=== PATIENT | female | born 1960 | race American Indian/Alaskan Native ===

== ENCOUNTER 2016-10-24 09:05 | Emergency (ER) | payer MEDICARE ==
[2016-10-24] MEDS ORDERED: ZOFRAN IV ONE (09:37)
--- NOTE | 2016-10-24 09:40 | Emergency Department Report ---
Chief Complaint: Nausea/Vomiting/Diarrhea Stated Complaint: REACTION TO MEDS Time Seen by Provider: 10/24/16 09:35 - HPI History of Present Illness: pt c/o abd pain, vomiting, and chest pain since last night. pt thinks this is a reaction to medication - ROS Review of Systems: + abd pain + cp + vomiting - Exam Physical Exam: obese female actively vomiting in triage MSE screening note: Focused history and physical exam performed. Due to findings the following was ordered: labs, ekg, meds ED Disposition for MSE Condition: Stable
[2016-10-24] MEDS ORDERED: NACL 0.9% 1000 ML 2,000 ML IV ONE (10:26)
--- NOTE | 2016-10-24 10:38 | XRay Report ---
PORTABLE CHEST INDICATION: Chest pain. COMPARISON: None similar. FINDINGS: Portable, frontal chest radiograph demonstrates normal cardiomediastinal silhouette. Mild aortic knob calcifications. Slightly crowded lung markings centrally, though otherwise clear, given the inspiration. EKG leads. Intact bones. CONCLUSION: No acute disease. Thank you for the opportunity to participate in this patient's care.
[2016-10-24 10:46] LABS: Basophils % (Auto) 0.4 % (0.0-1.8); Eosinophils % (Auto) 0.1 % (0.0-4.3); Hematocrit 44.9 % (30.3-42.9); Hemoglobin 14.9 gm/dl (10.1-14.3); Mean Corpuscular HGB Conc 33 % (30-34); Mean Corpuscular Hemoglobin 29 pg (28-32); Mean Corpuscular Volume 88 fl (79-97); Platelet Count 147 K/mm3 (140-440); Red Blood Count 5.13 M/mm3 (3.65-5.03); Red Cell Distribution Width 14.3 % (13.2-15.2); White Blood Count 7.1 K/mm3 (4.5-11.0)
[2016-10-24] MEDS ORDERED: HALDOL IM ONE (10:48)
[2016-10-24 11:11] LABS: Alanine Aminotransferase 15 units/L (7-56); Albumin/Globulin Ratio 1.1 %; Alkaline Phosphatase 65 units/L (35-129); Anion Gap 22 mmol/L; Blood Urea Nitrogen 10 mg/dL (7-17); Calcium 9.9 mg/dL (8.4-10.2); Carbon Dioxide 20 mmol/L (22-30); Chloride 100.5 mmol/L (98-107); Glucose 143 mg/dL (65-100); Lipase 24 units/L (13-60); Potassium 3.5 mmol/L (3.6-5.0); Sodium 139 mmol/L (137-145); Total Protein 7.7 g/dL (6.3-8.2)
[2016-10-24 12:10] LABS: Bacteria,Urine 1+ /HPF (Negative); Bilirubin,Urine NEG (Negative); Blood,Urine NEG (Negative); Ketones,Urine 20 mg/dL (Negative); Leukocyte Esterase,Urine SM (Negative); Mucus,Urine 2+ /HPF; Nitrite,Urine NEG (Negative); Urobilinogen,Urine < 2.0 mg/dL (<2.0)
--- NOTE | 2016-10-24 12:17 | Cat Scan Report ---
CT OF THE ABDOMEN AND PELVIS WITHOUT CONTRAST HISTORY: Abdominal pain. TECHNIQUE: Helical CT without contrast. Sagittal and coronal reformatted images. FINDINGS: Within the limits of a noncontrast exam, the abdominal and pelvic viscera are within normal limits. The liver is normal size and contour. 2 cm hemangioma versus cyst in the left hepatic lobe is noted. No suspicious liver mass. The biliary system, pancreas, spleen, kidneys, adrenal glands and bladder are unremarkable. The bowel loops are normal caliber and wall thickness. Normal appendix. The aorta is normal caliber. No ascites, bulky adenopathy or inflammatory changes. The uterus and adnexa are unremarkable. Left hip replacement changes generate artifact in the pelvis. The lung bases are clear. Normal heart size. No suspicious bony lesion. IMPRESSION: No acute abdominal process is appreciated. No clear explanation for abdominal pain. Liver hemangioma versus cyst. I favor hemangioma.
[2016-10-24] MEDS: CATAPRES PO ONE ×2 (13:17→14:04)
--- NOTE | 2016-10-24 15:10 | Emergency Department Report ---
ED General Adult HPI - General Chief complaint: Dyspnea/Respdistress Stated complaint: REACTION TO MEDS Time Seen by Provider: 10/24/16 09:35 Source: patient, family Mode of arrival: Ambulatory Limitations: No Limitations - History of Present Illness Initial comments: Patient reports that she is on disability from chronic knee, back, and left shoulder pain. Reports that she took a percocet and afterwards felt abdominal pain and chest pain last night. Continuous until this morning. Reports that she thinks she had an allergic reaction to the percocet that resulted in pain. Patient requesting pain medication for her abdominal and chest pain. Denies SI/ HI -: Gradual, hour(s) Radiation: non-radiation Severity scale (0 -10): 2 Quality: aching Consistency: constant Improves with: none Worsens with: medication Associated Symptoms: chest pain. denies: confusion, cough, diaphoresis, fever/ chills, headaches, loss of appetite, malaise, nausea/vomiting, rash, seizure, shortness of breath, syncope, weakness - Related Data Home Medications Medication Instructions Recorded Confirmed Last Taken AtorvaSTATin [Lipitor] 20 mg PO QHS 10/24/16 10/24/16 10/23/16 Citalopram [celeXA] 20 mg PO QDAY 10/24/16 10/24/16 10/23/16 Hydrochlorothiazide [HCTZ] 25 mg PO QDAY 10/24/16 10/24/16 10/23/16 Losartan [Cozaar] 100 mg PO QDAY 10/24/16 10/24/16 10/23/16 amLODIPine [Norvasc] 10 mg PO DAILY 10/24/16 10/24/16 10/23/16 Allergies Allergy/AdvReac Type Severity Reaction Status Date / Time No Known Allergies Allergy Unverified 10/24/16 09:38 ED Review of Systems ROS: Stated complaint: REACTION TO MEDS Other details as noted in HPI Other: GENERAL: No weight change, fatigue, weakness, fever, chills, or night sweats SKIN: No changes in skin or hair, no itching, no rashes, no jaundice HEAD: No trauma, headache, or visual changes EYES: No blurriness, tearing, itching, acute visual loss, conjunctival discoloration, or scleral icterus EARS: No hearing loss, tinnitus, vertigo, or earache NOSE: No rhinorrhea, stuffiness, sneezing, itching, or epistaxis MOUTH: No bleeding gums, hoarseness, sore throat, or swelling CARDIAC: chest pain RESPIRATORY: No shortness of breath, wheeze, cough, sputum production, hemoptysis, pneumonia, asthma, bronchitis, or emphysema GI: abdominal pain URINARY: No frequency, urgency, polyuria, dysuria, hematuria, or incontinence MUSCULOSKELETAL: No muscle weakness, joint stiffness, decrease in range of motion, redness, swelling, tenderness NEUROLOGIC: No loss of sensation, numbness, tingling, tremors, weakness, paralysis, seizures HEMATOLOGIC: No anemia, easy bruising, bleeding, petechiae, or purpura ENDOCRINE: No hot or cold intolerance, sweating, polyuria, polydipsia or, polyphagia no thyroid problems PSYCHIATRIC: No change in mood, no anxiety, no depression ED Past Medical Hx - Past Medical History Previous Medical History?: Yes Hx Hypertension: Yes - Surgical History Past Surgical History?: Yes Additional Surgical History: Left hip replacement, right foot surgery with instrumentation - Social History Smoking Status: Former Smoker Substance Use Type: Marijuana, Prescribed - Medications Home Medications: Home Medications Medication Instructions Recorded Confirmed Last Taken Type AtorvaSTATin [Lipitor] 20 mg PO QHS 10/24/16 10/24/16 10/23/16 History Citalopram [celeXA] 20 mg PO QDAY 10/24/16 10/24/16 10/23/16 History Hydrochlorothiazide [HCTZ] 25 mg PO QDAY 10/24/16 10/24/16 10/23/16 History Losartan [Cozaar] 100 mg PO QDAY 10/24/16 10/24/16 10/23/16 History amLODIPine [Norvasc] 10 mg PO DAILY 10/24/16 10/24/16 10/23/16 History ED Physical Exam - General Limitations: No Limitations - Other Other exam information: GENERAL: Patient in no acute distress HEAD: Normocephalic, atraumatic EYES: PERRLA, EOM intact, no scleral icterus, no conjunctival hemorrhage, visual arroyo and acuity wnl, NOSE: No tenderness, discharge, sinus tenderness MOUTH: No erythema, bleeding, exudate HEART: Regular rate and rhythm, no murmur, S1-S2 are auscultated, pulses are symmetric LUNGS: No wheezing, rales, rhonchi, bilateral breath sounds ABDOMEN: Normal bowel sounds, no tenderness, no rebound, no guarding, no masses , no CVA tenderness MUSCULOSKELETAL: Normal joint range of motion, no redness, no swelling, no tenderness NEUROLOGIC: GCS 15, Alert and Oriented x3, Cranial nerves intact, normal sensation, normal strength, no cerebellar deficit PSYCHIATRIC: No homicidal or suicidal ideation, no anxiety, no depression, no hallucinations SKIN: Skin is warm and dry, no wounds, no rashes ED Course Vital Signs 10/24/16 10/24/16 10/24/16 09:32 09:36 10:00 Temperature 98.3 F Pulse Rate 83 65 Respiratory 22 17 Rate Blood Pressure 154/85 121/67 Blood Pressure [Left] O2 Sat by Pulse 100 100 100 Oximetry 10/24/16 10/24/16 10/24/16 10:30 11:00 11:30 Temperature Pulse Rate 73 91 H 79 Respiratory 20 28 H 14 Rate Blood Pressure 166/92 180/117 180/117 Blood Pressure [Left] O2 Sat by Pulse 100 100 100 Oximetry 10/24/16 10/24/16 10/24/16 12:16 12:25 12:30 Temperature Pulse Rate 75 Respiratory 18 Rate Blood Pressure 180/117 123/63 Blood Pressure 140/74 [Left] O2 Sat by Pulse 100 100 100 Oximetry 10/24/16 10/24/16 10/24/16 13:00 13:30 14:01 Temperature Pulse Rate Respiratory Rate Blood Pressure 124/57 140/74 147/74 Blood Pressure [Left] O2 Sat by Pulse 100 96 100 Oximetry 10/24/16 10/24/16 10/24/16 14:04 14:31 15:00 Temperature Pulse Rate 78 Respiratory Rate Blood Pressure 174/75 101/53 98/47 Blood Pressure [Left] O2 Sat by Pulse 95 97 Oximetry ED Medical Decision Making - Lab Data Result diagrams: 10/24/16 10:25 10/24/16 10:33 - EKG Data When compared to previous EKG there are: no significant change - Radiology Data Radiology results: report reviewed - Medical Decision Making Patient comfortable. Updated with results. Plan discharge with outpatient follow-up. Patient agrees with plan and will return if symptoms worsen. Critical care attestation.: If time is entered above; I have spent that time in minutes in the direct care of this critically ill patient, excluding procedure time. ED Disposition Clinical Impression: Chest pain Qualifiers: Chest pain type: unspecified Qualified Code(s): R07.9 - Chest pain, unspecified Abdominal pain Qualifiers: Abdominal location: unspecified location Qualified Code(s): R10.9 - Unspecified abdominal pain Disposition: TO HOME OR SELFCARE Is pt being admited?: No Condition: Stable Instructions: Chest Pain (ED), Abdominal Pain (ED) Referrals: PRIMARY CAREMD [Primary Care Provider] - 2-3 Days MARIELY SALCIDO MD [Staff Physician] - 2-3 Days Time of Disposition: 15:12
[2016-10-24 15:30] VITALS: BP 98/47
== END 2016-10-24 16:10 | disposition home or self-care (01) ==
LOC: ED 09:05
DX: R07.9 Chest pain, unspecified (principal); R10.9 Unspecified abdominal pain; I10 Essential (primary) hypertension; F12.10 Cannabis abuse, uncomplicated; Z87.891 Personal history of nicotine dependence
CPT/HCPCS: 36415; 71010; 74176; 80053; 81001; 83690; 83880; 84484; 85025; 93005; 93010; 96361; 96372; 96374; 99285; J1630; J2405; J7030

== ENCOUNTER 2020-03-12 07:58 | Outpatient (CLI) | payer MEDICARE ==
--- NOTE | 2020-03-12 11:08 | Mammography Report ---
DIGITAL SCREENING MAMMOGRAM WITH CAD, 03/12/2020 INDICATION: Routine screening mammography. -screening TECHNIQUE: Digital bilateral 2D mammography was obtained in the craniocaudal and mediolateral obliq ue projections. This examination was interpreted with the benefit of Computer-Aided Detection analysi s. COMPARISON: 10/26/2015 FINDINGS: Breast Density: The breasts are almost entirely fatty. There is no evidence of suspicious calcifications or architectural distortion in either breast. There is a new 7 mm nodule in the right breast located approximately 13 cm from the nipple, mid to posteri or depth, and lower inner in location. IMPRESSION: Follow up recommendation: Special View: Spot with possible ultrasound to follow BI-RADS Category 0: Incomplete. Needs additional imaging evaluation and/or prior mammograms for jing rison. A "normal" or negative report should not discourage follow up or biopsy of a clinically significant f inding. A written summary of these findings will be mailed to the patient. The patient will be entered into a mammography reporting system which will generate a reminder letter for the patient's next appointmen t at the appropriate interval. The [employer] recommends yearly mammograms starting at age 40 and continuing as l rachael as a woman is in good health. Breast MRI is recommended for women with an approximate 20-25% or greater lifetime risk of breast cancer, including women with a strong family history of breast or ova alyssa cancer or who have been treated for Hodgkin's disease. Signer Name: Mg Gongora MD Signed: 03/12/2020 11:03 AM Workstation Name: [id number]
== END 2020-03-12 07:59 | disposition home or self-care (01) ==
LOC: SPVWC 07:58
PROVIDERS: ATTEND Physician Assistant
DX: Z12.31 Encounter for screening mammogram for malignant neoplasm of breast (principal)
CPT/HCPCS: 77067

== ENCOUNTER 2020-04-05 14:43 | Outpatient (CLI) | payer MEDICARE ==
--- NOTE | 2020-04-05 16:23 | Mammography Report ---
DIGITAL DIAGNOSTIC MAMMOGRAM WITH CAD CONVENTIONAL, 04/05/2020 CLINICAL INFORMATION / INDICATION: Patient presents as a callback from screening mammogram for furthe r evaluation of a nodular density in the right breast. INCONCLUSIVE MAMMOGRAM TECHNIQUE: Digital right mammographic imaging was performed. Spot compression views were obtained. This examination was interpreted with the benefit of Computer-aided Detection analysis. COMPARISON: Prior mammogram 03/12/2020 FINDINGS: Breast Density: The breasts are almost entirely fatty. As seen on recent screening mammogram, there is a persistent 7 mm nodular density with slightly irreg ular margins seen in the 5:00 position of the right breast, middle depth. IMPRESSION: 1. Persistent slightly irregular nodular density in the right breast which requires further evaluatio n with targeted ultrasound. Ultrasound is not available today, so patient will be scheduled to return . Follow up recommendation: Ultrasound BI-RADS Category 0: Incomplete. Needs additional imaging evaluation and/or prior mammograms for jing bowers. A "normal" or negative report should not discourage follow up or biopsy of a clinically significant f inding. A written summary of these findings will be mailed to the patient. The patient will be entered into a mammography reporting system which will generate a reminder letter for the patient's next appointmen t at the appropriate interval. According to the [employer], yearly mammograms are recommended starting at age 40 and continuing as long as a woman is in good health. Breast MRI is recommended for women with an shawn roximately 20-25% or greater lifetime risk of breast cancer, including women with a strong family his tory of breast or ovarian cancer and women who have been treated for Hodgkin's disease. Signer Name: Kristin Solares MD Signed: 04/05/2020 4:19 PM Workstation Name: [email or web address]
== END 2020-04-05 14:44 | disposition home or self-care (01) ==
LOC: SPVWC 14:43
PROVIDERS: ATTEND Physician Assistant
DX: N63.10 Unspecified lump in the right breast, unspecified quadrant (principal); R92.2 Inconclusive mammogram

== ENCOUNTER 2020-06-15 08:48 | Outpatient (CLI) | payer MEDICARE ==
--- NOTE | 2020-06-16 10:32 | Ultrasound Report ---
RIGHT DIGITAL DIAGNOSTIC MAMMOGRAM WITH CAD , 06/15/2020 RIGHT LIMITED BREAST ULTRASOUND CLINICAL INFORMATION / INDICATION: Abnormal screening mammogram. Screening recall of the right breast . TECHNIQUE: Digital right mammographic imaging was performed. Spot compression views were obtained. [facility]. This examination was interpreted with the benefit of Computer-Aided D etection (CAD) analysis. COMPARISON: Screening mammogram, 03/12/2020. Right diagnostic mammogram, 04/05/2020 FINDINGS: Breast Density: The breasts are almost entirely fatty. MAMMOGRAPHIC FINDINGS: Spot compression views of the right breast were obtained with a triangle skin marker overlying the hypoechoic masslike area identified by the instrument technologist. There is no focal mammographic abnormality to correspond to the sonographic finding. ULTRASOUND FINDINGS: Targeted ultrasound evaluation was performed of the area of interest. Sonograp hic evaluation of the right breast was performed to attempt to identify a correlate for the 5 mm nodu lar density at the 5:00 position seen on the previous screening mammogram. There is no sonographic co rrelate for this finding. However, incidentally noted at the 5:00 position 12 cm from the nipple is a hypoechoic masslike area measuring 2.9 x 2.7 cm with associated vascularity and posterior shadowing. There is no clear mammogr aphic correlate for this finding. IMPRESSION: 1. Irregular masslike area with posterior shadowing in the right breast at the 5:00 position 12 cm fr om the nipple that is identified only by ultrasound. Ultrasound-guided biopsy and surgical consultati on are recommended. 2. No sonographic correlate for the 5 mm density at the 5:00 position in the right breast. Additional evaluation or biopsy of this finding can be considered once biopsy results have been obtained from t he dominant lesion described above. Follow up recommendation: Biopsy BI-RADS Category 4: Suspicious for Malignancy. A "normal" or negative report should not discourage follow up or biopsy of a clinically significant f inding. A written summary of these findings will be mailed to the patient. The patient will be entered into a mammography reporting system which will generate a reminder letter for the patient's next appointmen t at the appropriate interval. According to the [employer], yearly mammograms are recommended starting at age 40 and continuing as long as a woman is in good health. Breast MRI is recommended for women with an shawn roximately 20-25% or greater lifetime risk of breast cancer, including women with a strong family his tory of breast or ovarian cancer and women who have been treated for Hodgkin's disease. Signer Name: Echo Patino MD Signed: 06/16/2020 10:28 AM Workstation Name: [id number]
== END 2020-06-15 08:49 | disposition home or self-care (01) ==
LOC: US 08:48
PROVIDERS: ATTEND Physician Assistant
DX: R92.2 Inconclusive mammogram (principal)

== ENCOUNTER 2020-08-19 09:33 | Outpatient (CLI) | payer MEDICARE ==
--- NOTE | 2020-08-19 12:38 | Ultrasound Report ---
Limited Right Breast Ultrasound HISTORY: INCONCLUSIVE MAMMO. Here for ultrasound guided biopsy of posterior depth hypoechoic lesion on most recent ultrasound TECHNIQUE: Grayscale and color imaging performed. COMPARISON: Diagnostic mammogram and limited right breast ultrasound both from 06/15/2020 FINDINGS: The vague hypoechoic area in the posterior depth right breast is not visualized on the curr ent exam. This could represent a skin fold in retrospect. Regardless, this same area was interrogated by the same compliance testing analyst and no abnormality was identified. However, the originally described small n odule in the more anterior aspect of the breast at the 5:00 position was located on this exam and octaviano sured 8 mm. I was prepared to biopsy this nodule and had a discussion with the patient. The patient i nformed me that she had an outside mammogram performed in between the comparison I had from 2016 and the more recent screening screening exam I read on 03/12/2020. The patient opted to not perform the b iopsy and instead requested comparison imaging to first be evaluated. After the patient left, my staff was then made aware that the patient had a comparison exam from 2019 at [facility] and was able to contact them to send comparison imaging. The c omparison mammogram from 2019 does not demonstrate the right breast nodule located at the 5:00 positi on of the right breast. Since this is a confirmed new finding, I recommend rescheduling the patient f or ultrasound-guided biopsy of this abnormality. IMPRESSION: Limited ultrasound as outlined above. The patient should be rescheduled for ultrasound-gu ided biopsy of the 5:00 position 8 mm right breast nodule. Signer Name: Mg Gongora MD Signed: 08/19/2020 12:34 PM Workstation Name: [id number]
== END 2020-08-19 09:34 | disposition home or self-care (01) ==
LOC: US 09:33
PROVIDERS: ATTEND Physician Assistant
DX: N60.01 Solitary cyst of right breast (principal)

== ENCOUNTER 2020-08-20 07:56 | Outpatient (CLI) | payer MEDICARE ==
--- NOTE | 2020-08-20 09:46 | Ultrasound Report ---
ULTRASOUND GUIDED RIGHT BREAST BIOPSY, 08/20/2020 RIGHT DIAGNOSTIC MAMMOGRAM CLINICAL INFORMATION / INDICATION: Patient has a small nodular density at the 5:00 position of the ri t breast which is new since outside exam from 2019. Here for biopsy. COMPARISON: Ultrasound from yesterday as well as mammographic images from 06/15/2020, 04/05/2020, 03/12, and 07/03/2018. PROCEDURE: Risks, benefits, and indications to the procedure were discussed with the patient in detail, includin g bleeding, infection, hematoma formation, and inadequate tissue sampling. The patient agreed to proc eed with both verbal and written consent. A timeout procedure was performed with two patient identifi ers. The breast was prepped and draped in the usual sterile fashion. Lidocaine 1% was used for local anest hesia. Under direct ultrasound guidance, 3 separate 14 gauge core samples were obtained of the right breast nodule. A biopsy marker was then placed. Biopsy device was removed and hemostasis achieved wi th manual pressure. A sterile dressing was applied to the skin. The patient tolerated the procedure without difficulty. No complications were encountered. Postbiopsy instructions were discussed with the patient and given in writing. Specimens were sent to pathology. The patient was then sent for a confirmatory mammogram to demonstrate adequate clip positioning in th e area in question. IMPRESSION: 1. Technically successful ultrasound guided right breast biopsy. 2. Satisfactory positioning of the biopsy clip on the post procedure mammogram. Biopsy results are pending and will be reported in an addendum. Signer Name: Mg Gnogora MD Signed: 08/20/2020 9:42 AM Workstation Name: [id number]
== END 2020-08-20 07:57 | disposition home or self-care (01) ==
LOC: US 07:56
PROVIDERS: ATTEND Physician Assistant
DX: N63.10 Unspecified lump in the right breast, unspecified quadrant (principal); I10 Essential (primary) hypertension; R92.8 Other abnormal and inconclusive findings on diagnostic imaging of breast; Z87.891 Personal history of nicotine dependence; Z79.899 Other long term (current) drug therapy
CPT/HCPCS: 88305